=== PATIENT | female | born 1945 | race Caucasian/White ===

== ENCOUNTER 2016-08-28 22:51 | Emergency (ER) | payer SELFPAY ==
[~2016-08-28 22:51] MED LIST: ASPI81TA3 PO; ATOR10TA65 PO; NAPR-688 PO; OMEP20CA16 PO; TRAM50TA2 PO; [UNRECOGNIZED DRUG - CODE] NASAL
== END 2016-08-29 01:49 | disposition left against medical advice (07) ==
LOC: E/R 22:51
DX: Z53.21 Procedure and treatment not carried out due to patient leaving prior to being seen by health care provider (principal)

== ENCOUNTER 2016-11-25 02:45 | Observation (INO) | payer MEDICARE, OTHER ==
[2016-11-25] VITALS (8 sets, daily range): BP systolic 114–139; BP diastolic 56–66; PULSE 50–71; RESP 17–20; Ht 167.6 cm; Wt 73.0 kg
[~2016-11-25] VITALS: Ht 167.6 cm; Wt 73.0 kg
--- NOTE | 2016-11-25 02:53 | ERA ---
ER Documentation Chief Complaint Date/Time DATE: 11/25/16 TIME: 02:53 Chief Complaint chest pain this evening. HPI The patient is 71 years old female. She presents to the ER because of left- sided chest pain, associated with pressure and nausea and diaphoresis, it is described as pressure. She had similar symptom previously. There is no aggravating or relieving factor. She denies dyspnea, abdominal pain, nausea or vomiting. He does not smoke or drink She was treated with aspirin 81 mg and 1 spray of nitroglycerin with some response by EMS Past medical history: Dyslipidemia, migraine, osteoporosis Past surgical history: Left inguinal herniorrhaphy, cosmetic abdominal surgery ROS All systems reviewed and are negative except as per history of present illness. Medications Home Meds Active Scripts Tramadol HCl (Tramadol HCl) 50 Mg Tablet, 50 MG PO Q6H Y for PAIN, #30 TAB Prov:DEVENDRA BUTT MD 06/27/15 Aspirin (Aspirin) 81 Mg Chew, 81 MG PO DAILY, #30 TAB Prov:DEVENDRA BUTT MD 06/27/15 Reported Medications Alprazolam* (Alprazolam*) 0.25 Mg Tablet, 0.25 MG PO QHS, TAB 11/25/16 Calcitonin Jackson* (Miacalcin*) 1 [place], 1 SPRAY NASAL DAILY, SPRAY TO ALTERNATING NOSTRIL 06/26/15 Atorvastatin Calcium (Atorvastatin Calcium) 10 Mg Tablet, 10 MG PO QHS, #30 TAB 06/26/15 Discontinued Reported Medications Omeprazole* (Omeprazole*) 20 Mg Capsule.dr, 20 MG PO DAILY, #30 CAP 06/26/15 Naproxen* (Naproxen*) 500 Mg Tablet, 500 MG PO DAILY Y for PAIN 12/03/13 Allergies Allergies: Coded Allergies: diphenhydramine HCl (Unverified Allergy, Unknown, SOB, 11/25/16) PMhx/Soc History of Surgery: Yes (ABDOMIAL HERNIA.) Anesthesia Reaction: No Hx Neurological Disorder: No Hx Respiratory Disorders: No Hx Cardiac Disorders: No Hx Psychiatric Problems: No Hx Miscellaneous Medical Probl: Yes (MIGRAINE HEADACHE.) Hx Alcohol Use: No Hx Substance Use: No Hx Tobacco Use: No Physical Exam Vitals Vital Signs Date Time Temp Pulse Resp B/P Pulse Ox O2 Delivery O2 Flow Rate FiO2 11/25/16 02:47 98.0 73 16 148/86 100 Physical Exam Const: No acute distress. Head: Atraumatic. Eyes: Normal Conjunctiva. ENT: Normal External Ears, Nose and Mouth. Neck: Full range of motion. No meningismus. Resp: Clear to auscultation bilaterally. Cardio: Regular rate and rhythm. Abd: Soft, non distended, normal bowel sounds, non tender. Skin: No petechiae or rashes. Back: No midline or flank tenderness. Ext: No cyanosis, or edema. Neur: Awake and alert. No focal deficit Psych: Normal Mood and Affect. Result Diagram: 11/25/16 0250 11/25/16 025 Results 24 hrs Laboratory Tests Test 11/25/16 02:50 11/25/16 02:58 White Blood Count 6.010^3/ul Red Blood Count 4.4010^6/ul Hemoglobin 13.3g/dl Hematocrit 39.9% Mean Corpuscular Volume 90.7fl Mean Corpuscular Hemoglobin 30.2pg Mean Corpuscular Hemoglobin Concent 33.3g/dl Red Cell Distribution Width 12.6% Platelet Count 10222^3/UL Mean Platelet Volume 9.9fl Neutrophils % 46.9% Lymphocytes % 42.5% Monocytes % 7.6% Eosinophils % 2.3% Basophils % 0.5% Nucleated Red Blood Cells % 0.0/100WBC Neutrophils # 2.810^3/ul Lymphocytes # 2.610^3/ul Monocytes # 0.510^3/ul Eosinophils # 0.110^3/ul Basophils # 0.010^3/ul Nucleated Red Blood Cells # 0.010^3/ul Prothrombin Time 11.8Sec Prothrombin Time Ratio 0.9 INR International Normalized Ratio 0.87 Activated Partial Thromboplast Time 24.5Sec Sodium Level 146mmol/L Potassium Level 3.9mmol/L Chloride Level 111mmol/L Carbon Dioxide Level 24mmol/L Anion Gap 15 Blood Urea Nitrogen 20mg/dl Creatinine 0.78mg/dl Glucose Level 104mg/dl Calcium Level 9.7mg/dl Troponin I < 0.012ng/ml Bedside Urine pH (LAB) 6.0 Bedside Urine Protein (LAB) Negative Bedside Urine Glucose (UA) Negative Bedside Urine Ketones (LAB) Negative Bedside Urine Blood Trace-intact Bedside Urine Nitrite (LAB) Negative Bedside Urine Leukocyte Esterase (L Trace Current Medications Medications (Trade) Dose Ordered Sig/[place] Route PRN Reason Start Time Stop Time Status Last Admin Dose Admin Aspirin (Aspirin) 162 mg ONCE ONCE PO 11/25/16 03:30 11/25/16 03:31 DC 11/25/16 03:24 Nitroglycerin (Nitroglycerin 2% Oint) 1 inch ONCE ONCE TD 11/25/16 03:30 11/25/16 03:31 DC 11/25/16 03:24 Ondansetron HCl (Zofran Inj) 4 mg STK-MED ONCE .ROUTE 11/25/16 03:26 11/25/16 03:27 DC Ondansetron HCl (Zofran Inj) 4 mg ONCE ONCE IV 11/25/16 03:32 11/25/16 03:33 DC Procedures/MDM EK:34 AM read by emergency physician Rate/Rhythm: Normal Sinus Rhythm 69 beats/min QRS, ST, T-waves: No ST elevation, no T inversion, low voltage Impression: Abnormal EKG X-ray per radiology is pending MEDICAL MAKING DECISION: The patient is a 71-year-old female, presenting with acute chest pain that is concerning for ACS. She was treated with aspirin 160 mg p.o., 1 inch of nitroglycerin ointment to the chest wall, morphine 2 mg IV for pain, Zofran 4 mg IV for nausea with good response. The differential diagnoses considered include but are not limited to acute coronary syndrome, acute myocardial infarction, pericarditis, pulmonary embolism , aortic dissection, pneumonia, pleural effusion, pneumothorax, GERD, chest wall pain. Departure Diagnosis: Primary Impression: Chest pain Condition: Stable Comments I discussed the findings with the patient. I discussed the patient with the on- call hospitalist Dr. Butt at 4:55 AM who was made aware of the lab, the treatment, the patient condition. The patient is admitted to telemetry COLLIN AMEZCUA MD Nov 25, 2016 02:53
[2016-11-25 02:56] LABS: URINE BLOOD (Dip) POC Trace-intact (NEGATIVE)
[2016-11-25] MEDS ORDERED: ONDANSETRON 4 MG INJ ONE (03:26)
[2016-11-25 03:30] LABS: ADD SCAN DIFF NO; BASOPHILS % 0.5 % (0.0-2.0); EOSINOPHILS # 0.1 10^3/ul (0.0-0.5); EOSINOPHILS % 2.3 % (0.0-7.0); HEMATOCRIT 39.9 % (37.0-47.0); HEMOGLOBIN 13.3 g/dl (12.0-16.0); LYMPHOCYTES # 2.6 10^3/ul (0.8-2.9); LYMPHOCYTES % 42.5 % (15.0-51.0); MEAN CORPUSCULAR HEMOGLOBIN 30.2 pg (29.0-33.0); MEAN CORPUSCULAR HGB CONC 33.3 g/dl (32.0-37.0); MEAN CORPUSCULAR VOLUME 90.7 fl (82.0-101.0); MEAN PLATELET VOLUME 9.9 fl (7.4-10.4); MONOCYTE # 0.5 10^3/ul (0.3-0.9); MONOCYTES % 7.6 % (0.0-11.0); NEUTROPHIL # 2.8 10^3/ul (1.6-7.5); NEUTROPHILS % 46.9 % (39.0-77.0); PLATELET COUNT 256 10^3/UL (140-415); RED CELL DISTRIBUTION WIDTH 12.6 % (11.5-14.5)
[2016-11-25] MEDS ORDERED: ASPIRIN 81 MG TAB PO ONE (03:30)
[2016-11-25] MEDS ORDERED: NITROGLYCERIN 2% 1 GM OINT PKT TD ONE (03:30)
[2016-11-25] MEDS ORDERED: ONDANSETRON 4 MG INJ IV ONE ×2 (03:32→04:55)
[2016-11-25 03:34] LABS: INR 0.87; PARTIAL THROMBOPLASTIN TIME 24.5 Sec (25.0-35.0); PROTIME 11.8 Sec (12.2-14.2); PT RATIO 0.9
[2016-11-25 03:37] LABS: ANION GAP 15 (8-16); BLOOD UREA NITROGEN 20 mg/dl (7-20); CALCIUM 9.7 mg/dl (8.4-10.2); CARBON DIOXIDE 24 mmol/L (21-31); CHLORIDE 111 mmol/L (97-110); CREATININE 0.78 mg/dl (0.44-1.00); GLUCOSE 104 mg/dl (70-220); POTASSIUM 3.9 mmol/L (3.5-5.1); SODIUM 146 mmol/L (135-144)
[2016-11-25 03:49] LABS: TROPONIN-I < 0.012 ng/ml (0.00-0.12)
[2016-11-25] MEDS ORDERED: ALPR0.254 PO (04:23)
[2016-11-25] MEDS ORDERED: morphine 4 MG/ML VIAL IV ONE (04:53)
[2016-11-25] MEDS ORDERED: traMADol 50 MG TAB PO PRN (05:30)
[2016-11-25] MEDS ORDERED: morphine 2 MG INJ IV PRN (05:30)
[2016-11-25] MEDS ORDERED: ONDANSETRON 4 MG INJ IV PRN (05:30)
[2016-11-25] MEDS ORDERED: ALBUTEROL/IPRATROPIUM (NEB) 3 ML AMP HHN PRN (05:30)
[2016-11-25] MEDS ORDERED: NACL 0.9% 3 ML SYG IV SCH (05:30)
[2016-11-25] MEDS ORDERED: ACETAMINOPHEN 325 MG TAB PO PRN (05:30)
[2016-11-25] MEDS ORDERED: NITROGLYCERIN (SL) 0.4 MG TAB SL PRN (05:30)
--- NOTE | 2016-11-25 05:48 | HP ---
Date/Time of Note Date/Time of Note DATE: 11/25/16 TIME: 05:27 Assessment/Plan VTE Prophylaxis VTE Prophylaxis Intervention: LMWH Lines/Catheters IV Catheter Type (from Nrsg): Peripheral IV Assessment/Plan Assessment/Plan IMPRESSION 1. Chest pain: r/o ACS - EKG w/o ischemia and first trop neg - Will trend trop - Oxygen, PRN SL NTG and morphine - No Beta-sofiya given bradycardia - will check A1c, fasting lipids and TSH - Obtain a 2D-echo - cardiology consult as needed 2. Hx of dyslipidemia - check fasting lipids - start med based on result 3. Anxiety - PRN meds 4. Mild Hypernatremia - monitor for now DVT ppx: Lovenox HPI/ROS Admit Date/Time Admit Date/Time Nov 25, 2016 at 04:50 Hx of Present Illness The patient is a 70-year-old female with a history of dyslipidemia and anxiety who presented to the emergency department with chest pain. Pain is pressure-like , initially left sided, but now both left and right sided. No associated SOB, N/ V or diaphoresis. she said she returned back fro [place] a day ago and said she was stressed-out/uncomfortable during the flight back because of "movement". Denied palpitations, fever, swelling/pain in her calfs. Pt was admitted and discharged by myself last year in June of 2015 after she presented with headache and chest pain with radiation to left arm. She was discharged after ruled out for ACS. 2D-Echo with preserved EF of 60% with only stage I diastolic dysfunction. Pt's director workforce management is Dr. Carrasco. She was last seen 2 months ago and had 2D-echo 3 months ago and was told everything was ok. When the patient presented to the ER, her vital were stable except HR once was noted to be 56. Labs show Sodium of 146 and Chloride 111, otherwise, CBC and BMP are unremarkable. Her first troponin was negative. She was given aspirin in ER. Nitroglycerine given by EMS with very minimal improvement of chest pain. . PMH/Family/Social Past Medical History Medical History: high cholesterol, hypertension Social History Alcohol Use: none Smoking Status: Never smoker Drug Use: none Exam/Review of Systems Vital Signs Vitals Vital Signs Date Time Temp Pulse Resp B/P Pulse Ox O2 Delivery O2 Flow Rate FiO2 11/25/16 05:00 56 17 143/94 99 Room Air 6/10/17 02:47 98.0 Exam Constitutional: alert, oriented, well developed Head: atraumatic, normocephalic Eyes: EOMI, PERRL Respiratory: clear to auscultation, normal air movement Cardiovascular: other (Sudhir with regular rhythm) Gastrointestinal: non-tender, soft Extremities: normal pulses Labs Result Diagram: 11/25/16 0250 11/25/16 0250 Medications Medications Current Medications Ondansetron HCl (Zofran Inj) 4 mg Q6H PRN IV NAUSEA AND/OR VOMITING; Start 04/03 at 05:30; Status UNV Nitroglycerin (Nitroglycerin (Sl Tab) 0.4 Mg) 1 tab Q5M PRN SL CHEST PAIN; Start 11/25/16 at 05:30; Status UNV Acetaminophen (Tylenol Tab) 650 mg Q6H PRN PO PAIN LEVEL 1-3 OR FEVER; Start at 05:30; Status UNV Morphine Sulfate (morphine) 2 mg Q4H PRN IV PAIN LEVEL 7-10; Start 11/25/16 at 05:30; Status UNV Enoxaparin Sodium (Lovenox) 40 mg DAILY SC ; Start 11/25/16 at 09:00; Status UNV Alprazolam (Xanax) 0.25 mg QHS PO ; Start 11/25/16 at 21:00; Status UNV Aspirin (Aspirin) 81 mg DAILY PO ; Start 11/25/16 at 09:00; Status UNV Atorvastatin Calcium (Lipitor) 10 mg QHS PO ; Start 11/25/16 at 21:00; Status UNV Calcitonin Watson (Miacalcin Nasal [place]) 1 spray DAILY NASAL ; Start 11/25/16 at 09:00; Status UNV Tramadol HCl (Ultram) 50 mg Q6H PRN PO PAIN; Start 11/25/16 at 05:30; Status UNV DEVENDRA STAUFFER MD Nov 25, 2016 05:39
--- NOTE | 2016-11-25 06:53 | RADRPT ---
PROCEDURE: CHEST - 1 VIEW CLINICAL INDICATION: 71-year-old female with chest pain. TECHNIQUE: A single frontal AP upright portable view of the chest was performed. The images were reviewed on a PACS workstation. COMPARISON: Chest x-ray June 26, 2015. FINDINGS: The cardiomediastinal silhouette has a normal appearance. There is no evidence for an infiltrate. There is no evidence for congestive heart failure. There is no evidence for pneumothorax. The osseou s structures are intact. IMPRESSION: No evidence for active cardiopulmonary disease. .Luis Beauchamp MD, MD Date Time Electronically viewed and signed by .Luis Beauchamp MD, on 11/25/2016 06:52 .M/
[2016-11-25] MEDS ORDERED: CALCITONIN SALMON 3.7 ML NASAL SPRAY NASAL SCH (09:00)
[2016-11-25] MEDS ORDERED: ASPIRIN 81 MG TAB PO SCH (09:00)
[2016-11-25] MEDS ORDERED: ENOXAPARIN 40 MG/0.4 ML SYG SC SCH (09:00)
[2016-11-25 11:06] LABS: CREATINE KINASE 48 IU/L (23-200)
[2016-11-25 11:24] LABS: CK-MB < 0.22 ng/ml (0.0-2.4); TROPONIN-I < 0.012 ng/ml (0.00-0.12)
--- NOTE | 2016-11-25 14:05 | CONS ---
DATE OF ADMISSION: 11/25/2016 DATE OF CONSULTATION: 11/25/2016 TYPE OF CONSULTATION: Cardiology. REFERRING PHYSICIAN: Dr. Blanco. REASON FOR CONSULTATION: Chest pain. CHIEF COMPLAINT: Chest pain. HISTORY OF PRESENT ILLNESS: Thank you for this referral. History was obtained from the patient, funmi collier with her daughters, review of the old chart. This is a 71-year-old female with history of dyslipidemia, anxiety who presented with complaint of chest pain. The patient said she just came fr [facility]. She had a lot of stress there. She woke up in the middle of the night to go to the [facility], and she felt chest discomfort, sharp anteriorly. She decided to come to emergency room. She had some nausea, but no vomiting. The patient denies any chest pain or pressure, no palpitation. Curr ently, she has remained in sinus rhythm, sinus bradycardia. Blood pressure has remained stable. He r pain has resolved and she wants to go home. Patient says she has been following up with Dr. Betsy shelton every 3 months, has had "all the tests" including a stress test done within the past year, all hav e been normal. She also said that 2 months ago she had an echocardiogram done, which was also durga l. PAST MEDICAL HISTORY: History of hypertension, history of dyslipidemia. MEDICATIONS: Her medical records personally reviewed. SOCIAL HISTORY: Does not smoke or drink. FAMILY HISTORY: Patient's mother had a pacemaker with no evidence of coronary artery disease. ALLERGIES: [facility] TO [facility]. REVIEW OF SYSTEMS: Denies all other except for above mentioned. Positive also for anxiety and stre ss as well. PHYSICAL EXAMINATION: VITAL SIGNS: Temperature 98, heart rate of 56, blood pressure 139/63, respiration rate 18, saturati ng 96%. HEENT: Normocephalic, atraumatic. No acute distress. Pupils are equal. CARDIOVASCULAR: Bradycardic, systolic murmur. PULMONARY: With no wheezes. GASTROINTESTINAL: Soft, nontender. EXTREMITIES: With no extremity edema. NEUROLOGIC: Awake and alert. PSYCHIATRIC: Appears to be calm and pleasant. DIAGNOSTIC DATA: EKG was personally reviewed, showed normal sinus rhythm, no evidence of ischemia. LABORATORY: Troponins have been negative x2. Sodium 142, potassium 3.9, BUN of 20, creatinine 0.78 , glucose 104. Chest x-ray showed no acute cardiopulmonary disease. Echocardiogram is being done c urrently, was reviewed, normal LV size and systolic function. ASSESSMENT AND PLAN: 1. Chest pain, appeared to be atypical, probably anxiety related. 2. History of dyslipidemia. 3. History of hypertension, currently under control. 4. Mild sinus bradycardia with no evidence of any symptoms associated with it. 5. Obesity. 6. Anxiety. RECOMMENDATIONS: The patient is currently on statin and aspirin. Currently, the patient remains ch est pain-free. Blood pressure has remained stable off of any medication currently. Different optio ns discussed with the patient including keeping her longer to do a CT coronary angiogram or stress t est. The patient said that she has been following up regularly with Dr. Blanco. She wants to go ho me. The patient can be safely discharged to follow up with Dr. Blanco as an outpatient in the next couple of days to arrange for outpatient stress testing. Dictated By: TOÑO SCHWARZ MD AV/ALLY Conf#: [id number] DID#: [id number] CC: TONY BLANCO MD;*EndCC*
[2016-11-25 16:29] LABS: CREATINE KINASE 45 IU/L (23-200)
[2016-11-25 17:26] LABS: CK-MB < 0.22 ng/ml (0.0-2.4); TROPONIN-I < 0.012 ng/ml (0.00-0.12)
--- NOTE | 2016-11-25 18:47 | PDOCDIS ---
Discharge Instructions DIAGNOSIS Discharge Diagnosis: atypical chest pain CONDITION Patient Condition: Stable FOLLOW UP/APPOINTMENTS Appointments PCP 1wk Dr Carrasco 1mMAI Horton MD Nov 25, 2016 18:47
[2016-11-25] MEDS ORDERED: ATORVASTATIN 10 MG TAB PO SCH (21:00)
[2016-11-25] MEDS ORDERED: ALPRAZOLAM 0.25 MG TAB PO SCH (21:00)
--- NOTE | 2016-11-26 04:16 | DS ---
DATE OF ADMISSION: 11/25/2016 DATE OF DISCHARGE: 11/25/2016 PRIMARY CARE PHYSICIAN: Unknown. CONSULTANTS: Dr. Fabian DIAGNOSIS ON ADMISSION: Atypical chest pain. DIAGNOSES ON DISCHARGE: 1. Atypical chest pain. 2. Chronic anxiety. 3. Chronic dyslipidemia. 4. Chronic fibromyalgia. HOSPITAL COURSE: A 71-year-old female admitted with chest pain, atypical, pressure, substernal, non radiating, no known relieving factors. Apparently anxiety. Patient returned from a trip to [facility] and there was a lot of turbulence on the flight. The patient denies any chest pain with activit y, walking or eating. No diaphoresis, productive cough, pleurisy, calf pains, etc. Even though she has a recent history of travel, there is no pleuritic chest pain, dyspnea, cough, sinus tachycardia , tachypnea or EKG changes concerning for VTE, etc. Chest x-ray okay. No wide mediastinum. No bro yvonne bones. On examination, nontender. No appreciated heartburn, reflux symptoms. The patient was seen by cardiology, ruled out for acute coronary syndrome by enzymes, EKG symptoms. Has been seen by Dr. Blanco in the past. Two-D echo was okay. EF of 30, stage I diastolic dysfunc tion. Her symptoms seem to be due to anxiety. The patient to continue her benzodiazepine and consider [facility], cognitive behavioral therapy. DISCHARGE PLAN: Home. Follow up with primary in 1 week, cardiology maybe 2 to 4 weeks. DIET: Regular, low salt. ACTIVITY: As tolerated. DURABLE MEDICAL EQUIPMENT: None. CODE STATUS: FULL. CONDITION: Stable. BARRIERS TO DISCHARGE: None. PENDING TESTS: None. FUNCTIONAL STATUS: The patient awake, alert, agrees to plan of care. REASON FOR ADMISSION: Atypical chest pain. ALLERGIES: BENADRYL. IMAGING STUDIES: Chest x-ray: No acute process. LABORATORY DATA: INR normal. White cell count of 6, H and H of 13 and 39, platelets of 250. BMP e ssentially unremarkable. Troponins negative x3. Vital signs stable. She does have some sinus alesha ycardia, but is asymptomatic. DISCHARGE MEDICATIONS: 1. Xanax 0.25 at bedtime. 2. Aspirin 81. 3. Lipitor 10. 4. Miacalcin spray daily. 5. Ultram 50 q.6 p.r.n. pain. Dictated By: MAI MULTANI/ALLY Conf#: [id number] DID#: [id number] CC: DEVENDRA STAUFFER MD; TONY BLANCO MD;*EndCC*
--- NOTE | 2016-11-27 09:17 | RADRPT ---
Echocardiogram Report Patient Name: ANNA CHEN Gender: Female Date: 1945 Study Date: 25-Nov-2016 Sports Analyst: DONALD Location: I Ref. Physician: DEVENDRA STAUFFER Quality: Adequate Procedures: Transthoracic echocardiogram with 2D, M-Mode, and Doppler examination, poor subcostal images. Indications: Chest Pain. 2D/M Mode Doppler Measurement Value Normal Ranges Measurement Value Normal Ranges AoR Diam MM 3.1 cm AV Peak Cricekt 1.4 m/sec ACS MM 1.9 cm AV Peak PG 7.3 mmHg LVIDd 2D 3.6 3.5 - 5.6 cm LVOT Peak Cricket 1.1 m/sec LVIDs 2D 2.1 2.1 - 4.1 cm LVOT Peak PG 4.6 mmHg LVPWd 2D 0.9 0.6 - 1.1 cm MV E Peak Cricket 0.7 m/sec IVSd 2D 0.9 0.6 - 1.1 cm MV A Peak Cricket 0.8 m/sec EDV 2D 53.5 cm3 MV E/A 0.8 ESV 2D 9.8 cm3 MV Decel Time 253 msec LA Dimen 2D 2.8 2.3 - 4.0 cm MV Decel Addison 3 MV E/A 0.8 TR Peak Cricket 2.3 m/sec TR Peak PG 21.4 mmHg PV Peak Cricket 1.1 m/sec PV Peak PG 5.0 mmHg RVSP 31.4 mmHg Findings Left Ventricle: Normal left ventricular systolic function. Normal left ventricular cavity size. Normal left ventricular wall thickness. Ejection fraction is visually estimated at 65 %. Tissue Doppler/Mitral Doppler indices are consistent with impaired relaxation (Stage I diastolic dysfunction). E/E`=7. E`=0 cm/s. Right Ventricle: Normal right ventricular size. Normal right ventricular systolic function. Left Atrium: The left atrium is normal in size. Right Atrium: The right atrium is normal in size. Atrial Septum: Normal atrial septum. Mitral Valve: Normal appearance and function of the mitral valve with trace physiologic regurgitation. Aortic Valve: Normal appearance of the aortic valve. Mild aortic regurgitation. No hemodynamically significant aortic stenosis by doppler. Trileaflet aortic valve. Tricuspid Valve: Normal appearance of the tricuspid valve. Estimated peak PA systolic pressure 31 mmHg. There is mild tricuspid regurgitation. Pulmonic Valve: Normal pulmonic valve appearance. No evidence of pulmonic regurgitation. Pericardium: Normal pericardium with no significant pericardial effusion. Aorta: Normal aortic root. IVC: Normal size and normal respiratory collapse consistent with normal right atrial pressure. Pulmonary Artery: Normal pulmonary artery size. Conclusions 1.Normal left ventricular systolic function. Normal left ventricular cavity size. Normal left ventricular wall thickness. Ejection fraction is visually estimated at 65 %. Tissue Doppler/Mitral Doppler indices are consistent with impaired relaxation (Stage I diastolic dysfunction). E/E`=7. E`=0 cm/s. 2.Normal appearance and function of the mitral valve with trace physiologic regurgitation. 3.Normal appearance of the aortic valve. Mild aortic regurgitation. No hemodynamically significant aortic stenosis by doppler. Trileaflet aortic valve. 4.Normal appearance of the tricuspid valve. Estimated peak PA systolic pressure 31 mmHg. There is mild tricuspid regurgitation. Electronically Signed By: Monty Fabian 25-Nov-2016 15:55:51 -0700 Patient Name: ANNA CHEN Study Date: 25-Nov-2016 [id number]
== END 2016-11-25 19:32 | disposition home or self-care (01) ==
LOC: E/R 02:45 → MS4 04:50 → INTOOBSV 04:50 → MS4 05:22
PROVIDERS: ADMIT Internal Medicine; ATTEND Internal Medicine
DX: R07.89 Other chest pain (principal); F41.9 Anxiety disorder, unspecified; E78.5 Hyperlipidemia, unspecified; M79.7 Fibromyalgia; M81.0 Age-related osteoporosis without current pathological fracture; E87.0 Hyperosmolality and hypernatremia; E78.00 Pure hypercholesterolemia, unspecified; I10 Essential (primary) hypertension; R00.1 Bradycardia, unspecified; E66.9 Obesity, unspecified; Z68.26 Body mass index [BMI] 26.0-26.9, adult; Z79.82 Long term (current) use of aspirin; Z88.8 Allergy status to other drugs, medicaments and biological substances
CPT/HCPCS: 36415; 71010; 80048; 81003; 82550; 82553; 84484; 85025; 85610; 85730; 93005; 93306; 96372; 96374; 96375; 99285; G0378; J1650; J2270; J2405; 99217

== ENCOUNTER → 2017-07-14 | Emergency (ER) | END | disposition home or self-care (01) ==